=== PATIENT | female | born 1990 | race Caucasian/White ===

== ENCOUNTER 2016-10-29 23:35 | Emergency (ER) | payer SELFPAY ==
[~2016-10-29 23:35] MED LIST: ENAL5TAB81 PO; HYDR200T5 PO; PRED10TA GTB; SAN100 PO
== END 2016-10-30 01:03 | disposition left against medical advice (07) ==
LOC: FTE 23:35
DX: Z53.21 Procedure and treatment not carried out due to patient leaving prior to being seen by health care provider (principal)